=== PATIENT | male | born 1945 | race Caucasian/White ===

== ENCOUNTER 2018-07-27 06:26 | Day surgery (SDC) | payer OTHER ==
--- NOTE | 2018-07-25 15:20 | RAD REPORT ---
EXAM DESCRIPTION: Doroteo Masters (2 Views)07/25/2018 3:10 pm CLINICAL HISTORY: Abdominal pain/preop for hernia repair COMPARISON: 2016 FINDINGS: The lungs appear clear of acute infiltrate. The heart is normal size IMPRESSION: No acute abnormalities displayed
--- NOTE | 2018-07-25 15:37 | EKG ---
Test Date: 2018-07-25 Test Time: 15:01:38 Global Category Manager: EDWINA MEASUREMENT RESULTS: Intervals: Rate: 51 CO: 226 QRSD: 194 QT: 536 QTc: 494 [place]: P: 74 CO: 226 QRS: -25 T: 74 INTERPRETIVE STATEMENTS: Sinus bradycardia with 1st degree AV block Left bundle branch block Abnormal ECG No previous ECG available for comparison Electronically Signed On 07-25-18 15:37:04 CDT by Dale Contreras
[2018-07-25 16:08] LABS: Absolute Lymphocytes (CBC) 2.3 K/uL (0.7-4.9); Absolute Monocytes 0.6 K/uL (0.1-1.3); Absolute Neutrophil 4.1 K/uL (1.8-8.0); Basophils % 0.6 % (0-1.3); Eosinophils % 1.8 % (0-4.4); Hematocrit 45.2 % (39.6-49.0); MCV 90.2 fL (80-100); MPV 8.9 fL (7.6-11.3); Monocytes % 7.9 % (3.3-12.3); RBC Red Blood Cell Count 5.01 M/uL (4.33-5.43)
[2018-07-25 16:33] LABS: Potassium 3.8 mmol/L (3.5-5.1)
[2018-07-27] MEDS: Ringers Lactate 1,000 ML IV ONE ×2 (07:00→07:50)
[2018-07-27] MEDS ORDERED: PROPOFOL 200 MG/20 ML VIAL IV ONE (07:27)
[2018-07-27] MEDS ORDERED: MIDAZOLAM HCL 2 MG/2 ML INJ ONE (07:28)
[2018-07-27] MEDS ORDERED: FENTANYL CITR 100 MCG/2 ML ONE (07:28)
[2018-07-27] MEDS ORDERED: LIDOCAINE 2% MPF 5 ML VIAL ONE (07:29)
[2018-07-27] MEDS ORDERED: ONDANSETRON HCL 40 MG/20 ML VIAL ONE (07:29)
[2018-07-27] MEDS ORDERED: ROCURONIUM 50 MG/5 ML VIAL IV ONE (07:30)
[2018-07-27] MEDS ORDERED: CEFOXITIN/SWI 1gm 1 GM/10 ML SYR IV ONE (08:15)
[2018-07-27] MEDS ORDERED: CEFAZOLIN SODIUM 1 GM/VIAL ONE (08:16)
[2018-07-27] MEDS ORDERED: EPHEDRINE SULF 50 MG/10 ML SYR ONE (08:22)
[2018-07-27] MEDS ORDERED: GLYCOPYRROLATE 0.2 MG/ML SYR ONE (08:45)
--- NOTE | 2018-07-27 09:06 | P.BOP ---
Preoperative diagnosis: multiple incarcerated incisional ventral hernias Postoperative diagnosis: same Primary procedure: 1. Open repair of upper ventral incisional incarcerated hernia. Secondary procedure: 2. Open repair of midlower ventral incisional incarcerated hernia. Estimated blood loss: <10cc Specimen: hernia sac Findings: incarcerated omentum Anesthesia: General Complications: None Transferred to: Recovery Room Condition: Good
[2018-07-27] MEDS ORDERED: HYDROCODONE/APAP 5/325 MG TAB ONE (09:54)
--- NOTE | 2018-07-27 22:35 | OP ---
Date of Procedure: 07/27/2018 Surgeon: Jacob Medina MD Postoperative Diagnosis: Multiple incarcerated incisional ventral hernias. Postoperative Diagnosis: Multiple incarcerated incisional ventral hernias. Procedures: 1.Open repair of upper ventral incisional incarcerated hernia. 2.Open repair of mid lower ventral incisional incarcerated hernia. Findings: Incarcerated omentum in two of the hernias. Anesthesia: General plus local. Indications: This is the case of a 72-year-old patient who had an emergent laparotomy in the past. A midline incision from xiphoid all the way down to the lower abdomen several years ago. The patient is doing well, but noticed 2 areas broken in the abdomen and midline incision and diagnosed with her nias with incarceration, becoming tender and enlarging, and he wants that repaired. The benefits, al ternatives, and risks of repair of 2 ventral incisional incarcerated hernias were fully explained to the patient, which include, but are not limited to infection, bleeding, damage to adjacent structures , anesthesia complications, recurrence, GA, and even . He also understands this may not relieve any symptoms. He might need more than one surgical intervention. He understands the importance als o of losing weight and avoiding heavy straining and heavy lifting. He understands the pros and cons of mesh placement. He understands we might have to do some lysis of adhesions. He signed a consent. Description Of Procedure: The patient was brought to the operating room, placed in supine position. Anesthesia was done without complication. Previously, we checked the CAT scan on him and marked the location of the hernias also with the help of the patient. The abdomen was prepped and draped in st erile fashion. A time-out was called. We made an incision first on the bigger hernia in the ventral region. This was in the lower part. Incision was carried down to subcutaneous tissue. We went thr ough some scar tissue present, but we were able to identify the hernia sac. Javi was placed in the edge of the fascia. We opened the hernia sac, noticed incarcerated omentum with some adhesions pres ent to that area. We had to remove the adhesions of omentum to the hernia sac, reduced the omentum o nce. We noticed it to be viable and making sure there was no bleeding. The hernia sac was removed. In order for us to obtain good closure, we had to lyse some adhesions at omentum the patient has int o the anterior abdominal wall from previous surgeries. The area was irrigated. Hemostasis was obtai alfie. No bleeding. No enterotomies. That allowed me to put my finger on it and run the incision. W e noticed the second hernia in the upper ventral region. That is also what indicated the CAT scan. At that moment, we had to make an incision away from this and in the upper ventral region since it wa s too far away and made an incision in that area. Incision was carried down to fascia. The hernia s ac was identified and open. Incarcerated omentum was released from the hernia sac, reduced back into the cavity after fully inspecting and noted to be viable. Removed the hernia sac and closed the def ects with #2 nylon fisyvg-pw-gefye multiple times. After that, I ran my finger from the lower hernia and opened down. I could not find any other defect. So, I proceeded to close the main defect on e lower ventral region. That was done without tension with a by using #2-0 Prolene in a gwmake-de-ys ght fashion multiple times, and the defect was closed. Both subcutaneous incisions were closed with 3-0 chromic after irrigation and local anesthetic was applied after hemostasis, and then the skin was approximated with [place]. Sponge counts and instrument counts were correct. The patient tolerated the procedure well. The patient was sent to recovery room in stable condition. FRANCIA Voice ID: [id number] Report ID: [id number]
--- NOTE | 2018-07-27 22:59 | DS ---
Date of Discharge: 07/27/2018 Diagnosis: Two incisional incarcerated ventral hernias. Procedure: Repair of 2 incisional ventral hernias with different multiple incisions. Disposition: Home. Activity: As tolerated. No heavy lifting. Followup: Follow up in my office in 1 week. Call for appointment on [phone]. Keep the area dry fo r 48 hours and then may shower. Medications: For medications, see orders. JOE/ANN Voice ID: [id number] Report ID: [id number]
== END 2018-07-27 10:40 | disposition home or self-care (01) ==
LOC: OR 06:26
PROVIDERS: ATTEND Surgery
PROC: 0WQF0ZZ Repair Abdominal Wall, Open Approach (ICD-10-PCS; 2018-07-27)
PROC: 0WQF0ZZ Repair Abdominal Wall, Open Approach (ICD-10-PCS; principal; 2018-07-27 07:30)
DX: K43.0 Incisional hernia with obstruction, without gangrene (principal); I10 Essential (primary) hypertension; E78.00 Pure hypercholesterolemia, unspecified; K21.9 Gastro-esophageal reflux disease without esophagitis; E07.9 Disorder of thyroid, unspecified; Z80.0 Family history of malignant neoplasm of digestive organs; Z82.49 Family history of ischemic heart disease and other diseases of the circulatory system; Z80.42 Family history of malignant neoplasm of prostate
CPT/HCPCS: 36415; 49561 ×2; 71046; 80048; 85025; 88302; 93005; J0690; J2250; J2405; J3010

== ENCOUNTER 2018-12-19 07:54 | Day surgery (SDC) | payer OTHER ==
[~2018-12-19 07:54] MED LIST: LIDOCAINE 1.5% W/EPI AMP 5 ML ONE
[2018-12-19] MEDS ORDERED: TETRACAINE HCL 0.5% 2ML OPTH ONE (08:38)
[2018-12-19] MEDS ORDERED: BUPIVACAINE 0.25% PF 10 ML VIAL ONE (08:38)
[2018-12-19] MEDS ORDERED: LIDOCAINE 2% MPF 5 ML VIAL ONE (08:38)
[2018-12-19] MEDS ORDERED: NA CHLORIDE 0.9% 500 ML ONE (08:38)
[2018-12-19] MEDS ORDERED: LIDOCAINE HCL/PF 3.5% OPTH GEL ONE (08:38)
[2018-12-19] MEDS: CYCLOPENTOLATE 1% OPTH 2 ML ONE ×3 (08:50→09:12)
[2018-12-19] MEDS: PHENYLEPHRINE 10% OPTH 5ML ONE ×2 (08:50→09:12)
[2018-12-19] MEDS ORDERED: EPINEPHRINE/PF 1 MG/ML AMP ONE (09:24)
[2018-12-19] MEDS ORDERED: BALANCED SALT IRRIG PLAIN 500 ML BTL IRR ONE (09:24)
[2018-12-19] MEDS ORDERED: NS 0.9% VIAL 10 ML ONE (09:24)
[2018-12-19] MEDS ORDERED: DUOVISC 1 KIT OPTH ONE (09:24)
[2018-12-19] MEDS ORDERED: LIDOCAINE 1% MPF 2 ML AMPULE ONE (09:25)
[2018-12-19] MEDS ORDERED: MOXIFLOXACIN HCL 10 DROPS/ML **OR USE OPTH ONE (09:25)
[2018-12-19] MEDS ORDERED: MIDAZOLAM HCL 2 MG/2 ML INJ ONE (09:38)
[2018-12-19] MEDS ORDERED: FENTANYL CITR 100 MCG/2 ML ONE (09:38)
--- NOTE | 2018-12-19 10:44 | P.BOP ---
Preoperative diagnosis: Nuclear sclerotic cataract OS Postoperative diagnosis: Same Primary procedure: Phacoemulsification with IOL OS Estimated blood loss: None Anesthesia: Local Complications: None Implants: SA60WF +19.5 Transferred to: Other (Day surgery) Condition: Good
--- NOTE | 2018-12-19 20:48 | OP ---
Date of Procedure: 12/19/2018 Surgeon: Joanie Brothers MD Anesthesiologist: Deb Tariq CRNA, and Felipe Hall M.D. Preoperative Diagnosis: Nuclear sclerotic cataract, OS (left eye). Operation Performed: Phacoemulsification with intraocular lens implant, left eye. Anesthesia: Per cataract surgery. Complications: None. Description Of Procedure: In the operating room the patient was prepped and draped in the usual sterile fashion for ophthalmic surgery. A lid speculum was placed in the left eye. Two paracentesis sites were made superiorly and inferiorly in the limbal cornea. Viscoat was placed in the anterior chamber and a crescent blade was used to make a corneal groove and tunnel, and a keratome was used to enter the anterior chamber. Provisc was placed in the anterior chamber and a 360 degree capsulotomy was performed with a cystitome. The lens was hydrodissected with BSS and rotated freely. The lens was removed with a stop and chop technique. A 10.04 phaco CDE was used to remove the lens. Residual cortex was removed with the irrigation and aspiration. Provisc was placed in the capsular bag. A SA60WF +19.5 lens was placed in the capsular bag without complications. Irrigation and aspiration was used to remove residual viscoelastic. The paracentesis sites were hydrated with BSS. The wound and paracentesis sites were inspected and found to be watertight. Vigamox 0.07 cc was placed intracamerally at the end of the procedure. The eye was irrigated with balanced salt solution. The eye was patched with a soft cotton patch and Gomes metal shield. The patient was returned to day surgery in good condition. Comments: Akten was placed in the eye in Day Surgery and irrigated out of the eye with BSS in the OR. Preservative-free 1% lidocaine was placed in the anterior chamber prior to Viscoat. Discharge Instructions: Mr. Hernandez is discharged to home in good condition and is to follow up with Dr. Brothers in the morning. JUAN/ANN Voice ID: [id number] Report ID: [id number] LISBETH
== END 2018-12-19 11:10 | disposition home or self-care (01) ==
LOC: OR 07:54
PROVIDERS: ATTEND Ophthalmology Retina Specialist
PROC: 08RK3JZ Replacement of Left Lens with Synthetic Substitute, Percutaneous Approach (ICD-10-PCS; principal; 2018-12-19 09:40)
DX: H25.12 Age-related nuclear cataract, left eye (principal); E78.00 Pure hypercholesterolemia, unspecified; I10 Essential (primary) hypertension; E07.9 Disorder of thyroid, unspecified; Z79.899 Other long term (current) drug therapy
CPT/HCPCS: 66984; J0171; J2001 ×2; J2250; J3010; V2630

== ENCOUNTER 2019-01-30 07:27 | Day surgery (SDC) | payer OTHER ==
[2019-01-30] MEDS ORDERED: NS 0.9% VIAL 10 ML ONE (08:13)
[2019-01-30] MEDS ORDERED: BSS OPTHALMIC SOL 15 ML BOT OPTH ONE (08:14)
[2019-01-30] MEDS ORDERED: LIDOCAINE 2% MPF 5 ML VIAL ONE (08:25)
[2019-01-30] MEDS ORDERED: LIDOCAINE HCL/PF 3.5% OPTH GEL ONE (08:25)
[2019-01-30] MEDS ORDERED: CYCLOPENTOLATE 1% OPTH 2 ML OPTH ONE ×2 (08:25→08:30)
[2019-01-30] MEDS ORDERED: PHENYLEPHRINE 10% OPTH 5ML ONE (08:25)
[2019-01-30] MEDS ORDERED: NA CHLORIDE 0.9% 500 ML ONE (08:25)
[2019-01-30] MEDS ORDERED: PHENYLEPHRINE 10% OPTH 5ML OPTH ONE ×2 (08:25→08:30)
[2019-01-30] MEDS ORDERED: CYCLOPENTOLATE 1% OPTH 2 ML ONE (08:26)
[2019-01-30] MEDS ORDERED: BUPIVACAINE 0.25% PF 10 ML VIAL ONE (08:26)
[2019-01-30] MEDS ORDERED: TETRACAINE HCL 0.5% 2ML OPTH ONE (08:26)
[2019-01-30] MEDS ORDERED: LIDOCAINE 2% INJ, MPF 2 ML 0 ML ONE (08:28)
[2019-01-30] MEDS ORDERED: LIDOCAINE 1% MPF 2 ML AMPULE ONE (08:31)
[2019-01-30] MEDS ORDERED: MIDAZOLAM HCL 2 MG/2 ML INJ ONE (08:51)
[2019-01-30] MEDS ORDERED: FENTANYL CITR 100 MCG/2 ML ONE (08:51)
[2019-01-30] MEDS: BALANCED SALT IRRIG PLAIN 500 ML BTL IRR ONE ×2 (08:56→09:19)
[2019-01-30] MEDS: DUOVISC 1 KIT OPTH ONE ×2 (08:57→09:19)
[2019-01-30] MEDS: EPINEPHRINE/PF 1 MG/ML AMP ONE ×2 (08:57→09:19)
[2019-01-30] MEDS: MOXIFLOXACIN HCL 10 DROPS/ML **OR USE OPTH ONE ×2 (08:57→09:19)
--- NOTE | 2019-01-30 09:56 | P.BOP ---
Preoperative diagnosis: Nuclear sclerotic cataract OD Postoperative diagnosis: Same Primary procedure: Phacoemulsification with IOL OD Estimated blood loss: None Anesthesia: Local (Subtenon's infusion with anesthesia for cataract surgery) Complications: None Implants: SA60WF +19.0 Transferred to: Other (Day surgery) Condition: Good
--- NOTE | 2019-01-30 21:04 | OP ---
Date of Procedure: 01/30/2019 Surgeon: Joanei Brothers MD Preoperative Diagnosis: Nuclear sclerotic cataract, OD (right eye). Operation Performed: Phacoemulsification with intraocular lens implant, right eye. Anesthesia: 1. Bereket Vera CRNA. 2. Felipe Hall MD. Anesthesia per cataract surgery. Complications: None. Description Of Procedure: In the operating room the patient was prepped and draped in the usual sterile fashion for ophthalmic surgery. A lid speculum was placed in the right eye. Two paracentesis sites were made superiorly and inferiorly in the limbal cornea. Viscoat was placed in the anterior chamber and a crescent blade was used to make a corneal groove and tunnel, and a keratome was used to enter the anterior chamber. Provisc was placed in the anterior chamber and a 360 degree capsulotomy was performed with a cystitome. The lens was hydrodissected with BSS and rotated freely. The lens was removed with a stop and chop technique. An 11.76 phaco CDE was used to remove the lens. Residual cortex was removed with the irrigation and aspiration. Provisc was placed in the capsular bag. An SA60WF +19.0 lens was placed in the capsular bag without complications. Irrigation and aspiration was used to remove residual viscoelastic. The paracentesis sites were hydrated with BSS. The wound and paracentesis sites were inspected and found to be watertight. Vigamox 0.07 cc was placed intracamerally at the end of the procedure. The eye was irrigated with balanced salt solution. The eye was patched with a soft cotton patch and Gomes metal shield. The patient was returned to day surgery in good condition. Comments: Akten was placed in the eye in Day surgery and irrigated out of the eye with BSS in the OR. Preservative-free 1% lidocaine was placed in the anterior chamber prior to Viscoat. Discharge Instructions: Mr. Hernandez is discharged to home in good condition and is to follow with Dr. Brothers in the morning. JUAN/ANN Voice ID: [id number] Report ID: [id number] LISBETH
== END 2019-01-30 10:15 | disposition home or self-care (01) ==
LOC: OR 07:27
PROVIDERS: ATTEND Ophthalmology Retina Specialist
PROC: 08RJ3JZ Replacement of Right Lens with Synthetic Substitute, Percutaneous Approach (ICD-10-PCS; principal; 2019-01-30 09:00)
DX: H25.11 Age-related nuclear cataract, right eye (principal); E78.00 Pure hypercholesterolemia, unspecified; E07.9 Disorder of thyroid, unspecified; I10 Essential (primary) hypertension; Z79.899 Other long term (current) drug therapy
CPT/HCPCS: 66984; J0171; J2250; J3010; J2001; J3490

== ENCOUNTER 2021-03-24 08:24 | Day surgery (SDC) | payer OTHER ==
[2021-03-20 14:17] LABS: Absolute Lymphocytes (CBC) 2.4 K/uL (0.7-4.9); Basophils % 0.5 % (0-1.3); Hematocrit 47.2 % (39.6-49.0); Lymphocytes % 34.6 % (15.3-44.8); MPV 8.8 fL (7.6-11.3); RBC Red Blood Cell Count 5.33 M/uL (4.33-5.43)
[2021-03-20 14:23] LABS: Protime INR 1.27
[2021-03-20 14:28] LABS: Potassium 3.7 mmol/L (3.5-5.1)
--- NOTE | 2021-03-20 15:03 | RAD REPORT ---
EXAM DESCRIPTION: RAD - Chest Pa And Lat (2 Views) - 03/20/2021 2:17 pm CLINICAL HISTORY: preop, pending cardiac catheterization COMPARISON: July 2018 TECHNIQUE: Frontal and lateral views of the chest were obtained. FINDINGS: The lungs are clear of an acute lung parenchymal process. Mildly prominent chronic interst itial lung pattern matches the comparison study. Heart size is normal and central vasculature is wi thin normal limits. No pleural effusion or pneumothorax seen. No acute bony finding noted. No aort ic abnormality. Colonic interposition between the liver and right hemidiaphragm noted has a normal v ariant. IMPRESSION: No acute cardiopulmonary process. No significant change from comparison study.
[2021-03-24] MEDS ORDERED: NA CHLORIDE 0.9% 500 ML ONE (08:47)
[2021-03-24] MEDS ORDERED: HEPA 1000U/500MLS 1,000 UNIT/500 ML BAG IV ONE (08:57)
[2021-03-24 09:06] VITALS: TEMP 96.1
[2021-03-24] MEDS ORDERED: ATROPINE SULF 1 MG/10 ML SYR IV ONE (09:27)
[2021-03-24] MEDS ORDERED: MIDAZOLAM HCL 2 MG/2 ML INJ ONE (09:27)
[2021-03-24] MEDS ORDERED: NITROGLYCERIN 100 MCG/ML SYR (for cath lab use only) IV ONE (09:27)
[2021-03-24] MEDS ORDERED: FENTANYL CITR 100 MCG/2 ML ONE (09:27)
[2021-03-24] MEDS ORDERED: NA CHLORIDE 0.9% 0 ML ONE (09:27)
[2021-03-24] MEDS ORDERED: NITROGLYCERIN/D5W 0 MG/0 ML BTL IV ONE (09:27)
[2021-03-24 11:29] VITALS: BP 128/67; O2SAT 100
--- NOTE | 2021-03-24 11:41 | OP ---
Surgeon: Julio Garza MD Vp Talent Management: Brandyn Peralta. Procedure In Detail: Brought to the construction or leak gang laborer today on 03/24/2021. He was brought to the construction or leak gang laborer as an outpatient. Indication For The Procedure: Chest pain, shortness of breath, asymmetrical septal hypertrophy, low ejection fraction, and abnormal stress test. Procedure In Detail: Mr. Hernandez is 75, brought to the construction or leak gang laborer today as an outpatient, prepped and dr aped in routine sterile fashion. Given Versed and fentanyl for sedation. A 6-[place] Citizen sheath was intr oduced in the right common femoral artery successfully. Angiography there was normal. Angio-Seal wa s used to close the case. Rosana catheters left and right were used to cannulate the left main and right main respectively. RCA was very large, ectatic, dominant with diffuse plaquing throughout and a 50% distal RCA stenosis. His left main was normal. His circumflex was positive for some mild plaq uing throughout. The LAD showed a 30% proximal stenosis, a 50% distal stenosis. Again, it was ectat ic with diffuse plaquing. No focal stenosis, bad enough for intervention. The patient tolerated the procedure well. There were no complications. Blood Loss: 5 mL. Postoperative Diagnosis: Moderate coronary artery disease. Plan: To continue medical therapy. I will increase his statin for now. May have to increase his be ta-tracie later depending on his symptoms. Anesthesia: Total conscious sedation 45 minutes. The patient will go home after 2 hours of bedrest. I will see him in the office in 2 weeks. DARIO/ANN Voice ID: [id number] Report ID: [id number]
== END 2021-03-24 11:30 | disposition home or self-care (01) ==
LOC: CCL 08:24
DX: I25.10 Atherosclerotic heart disease of native coronary artery without angina pectoris (principal); I71.4 Abdominal aortic aneurysm, without rupture; I71.2 Thoracic aortic aneurysm, without rupture; I10 Essential (primary) hypertension; E78.2 Mixed hyperlipidemia; G47.33 Obstructive sleep apnea (adult) (pediatric); K21.9 Gastro-esophageal reflux disease without esophagitis; E11.9 Type 2 diabetes mellitus without complications; E03.9 Hypothyroidism, unspecified
CPT/HCPCS: 85025; 80048; 36415; 85610; 85730; 71046; 93454; U0003; C1893; C1760; J2250; J3010; J7040; J1644; J0583

== ENCOUNTER 2023-12-14 09:21 | Day surgery (SDC) | payer OTHER ==
[2023-12-14] MEDS: Ringers Lactate 1,000 ML IV ONE (09:50)
[2023-12-14] MEDS ORDERED: KETOROLAC 30 MG/ML INJ ONE (12:36)
[2023-12-14] MEDS ORDERED: FENTANYL CITR 100 MCG/2 ML ONE (12:36)
[2023-12-14] MEDS ORDERED: ONDANSETRON 4 MG/2 ML VIAL ONE (12:36)
[2023-12-14] MEDS ORDERED: propofoL 200 MG/20 ML VIAL IV ONE (12:36)
[2023-12-14] MEDS ORDERED: LIDOCAINE 1% MPF 5 ML VIAL ONE (12:36)
[2023-12-14] MEDS: GENTAMICIN 80 MG/100 ML BAG 240 MG/300 ML BAG IV ONE (12:55)
[2023-12-14] MEDS: AMPICILLIN SODIUM 2 GM/VIAL VIAL ONE (13:10)
[2023-12-14] MEDS ORDERED: GLYCOPYRROLATE 0.2 MG/ML SYR ONE (13:40)
[2023-12-14] MEDS ORDERED: EPHEDRINE SULF 50 MG/ML VIAL ONE (13:56)
[2023-12-14] MEDS ORDERED: CODEINE 30MG/APAP 300MG TAB PO PRN (14:37)
[2023-12-14] MEDS ORDERED: PHENAZOPYRIDINE 100MG TAB PO ONE (15:31)
[2023-12-14] MEDS: PHENAZOPYRIDINE 100MG TAB PO ONE (15:33)
[2023-12-14] MEDS: OXYBUTYNIN ER 5 MG TAB PO ONE (15:37)
[2023-12-14 16:42] VITALS: BP 112/68
[2023-12-14 17:03] VITALS: TEMP 97; O2SAT 95
--- NOTE | 2023-12-14 19:12 | OP ---
Surgeon: CAMMY CARRILLO Preoperative Diagnosis: Benign prostatic hypertrophy with lower urinary tract obstruction and sympto ms. Postoperative Diagnosis: Benign prostatic hypertrophy with lower urinary tract obstruction and sympt oms. Principal Procedure: Bipolar transurethral resection of the prostate. Indication For Procedure: Mr. Hernandez presented to the Urology Clinic with persistent urinary symptoms refractory to medical therapy. Cystoscopic analysis revealed intravesical projection of median lobe and anterior fusion which made the potential for more minimally invasive procedures like the UroLift less of an option. As a result, he was counseled on the opportunity for bipolar transurethral resec tion of the prostate in order to improve his LUTS, and he elected to proceed. Description Of Procedure: The patient was consented in the preoperative holding area before being tr ansferred to the operative suite where general anesthesia was induced. He was given ampicillin 2 g a nd gentamicin 240 mg IV antimicrobial prophylaxis. Pneumo boots were provided for DVT prophylaxis. He was placed in the lithotomy position, padded and secured to the table appropriately. His genitali a were prepped with Hibiclens and he was draped in standard fashion. The case was begun using urethr al sounds to dilate the meatus and fossa navicularis to 30-Turkish. Then, utilizing a visual obturato r and a 26-Turkish resectoscope bipolar sheath, I was able to traverse the urethra and into the bladde r with ease. The bladder was decompressed of fluid and urine and was surveyed. It was then refilled with sterile saline, and the ureteral orifices were identified. I then began resecting the intralum inally projecting adenoma of the median lobe with the left ureteral orifice in direct vision, smoothi ng the elevated bladder neck down to the level of the trigone. I similarly resected the region with the right ureteral orifice in direct vision and lowering the bladder neck to the level of trigone bef ore I resected the intervening intravesically projecting median lobar tissue. Once this was level wi th the bladder neck, I continued the resection down to the level of the verumontanum to create a smoo th trough. I then continued the resection into the left lateral lobe first at the bladder neck and e xtending into the mid zone of the prostate before getting to the apex and extending that from bladder neck to apex posteriorly to anteriorly. I then similarly resected the patient's right side starting at the bladder neck extending into the mid zone of the prostate and then to the apex from posterior to anterior. Ellik evacuation was used at multiple points to remove prostate chips and blood within the bladder, and with his bladder completely decompressed, I would reassess the now intraluminally pr ojecting adenoma evidenced from the decompression of his bladder, and I would resect that tissue furt her until no intraluminally projecting adenoma was present. I also trimmed the apical intraluminal i ntrusion until it was also no longer kissing in the midline, but yet not beyond the point of the veru montanum. In the end, with the bladder completely decompressed and the adenoma nicely resected, a sm ooth continuous channel was visible from verumontanum into the bladder. I thus ensured all prostate chips had been removed, and carefully fulgurated any and all bleeding vessels with minimal fluid irri gation going in. I then completely decompressed his bladder again and with the bladder completely em pty, further fulgurated any oozing vessels with no fluid irrigation going. In the end, once complete ly hemostatic with the bladder completely decompressed, I then refilled the bladder to ensure all pro state chips had been removed and removed any residual tissue seen within. I then retrograde filled h is bladder before removing the scope and assessing for any prostate chips in the urethra on the way o ut. I then passed a 22-Turkish 3-way Zarate catheter via his urethra into his bladder with ease. 40 c c of sterile water was placed in the balloon. The patient was then taken out of the lithotomy positi on, the catheter was connected to moderate traction and very slow drip CBI, and the efflux of fluid a nd urine was crystal clear. He was then transferred to a stretcher and then transferred to the [facility] room in good condition. Complications: None. Discharge Disposition: He will be standard bipolar TURP followup pathway. He may be seen for a nurs ing visit somewhere 2-4 weeks following the procedure in case there is any symptomatic difficulty he might be experiencing that could benefit from our support and assistance. Otherwise, I will see him back in about 3 months. ANUJ/MODL Voice ID: [id number] Report ID: [id number]
[2023-12-15] MEDS ORDERED: OXYBUTYNIN ER 5 MG TAB PO SCH (09:00)
== END 2023-12-14 16:30 | disposition home or self-care (01) ==
LOC: OR 09:21
PROVIDERS: ATTEND Urology
PROC: 0VT08ZZ Resection of Prostate, Via Natural or Artificial Opening Endoscopic (ICD-10-PCS; principal; 2023-12-14 11:00)
DX: N40.1 Benign prostatic hyperplasia with lower urinary tract symptoms (principal)
CPT/HCPCS: 88304; 52601; J2704; J2001; J3010; J2405; J0290; J7120; J1580

== ENCOUNTER 2024-08-31 06:39 | Day surgery (SDC) | payer OTHER ==
[2024-08-30 13:38] LABS: Absolute Eosinophils 0.1 K/uL (0-0.5); Absolute Lymphocytes (CBC) 2.2 K/uL (0.7-4.9); Absolute Monocytes 0.6 K/uL (0.1-1.3); Absolute Neutrophil 3.4 K/uL (1.8-8.0); Basophils % 0.6 % (0-1.3); Eosinophils % 1.7 % (0-4.4); Hematocrit 46.6 % (39.6-49.0); Hemoglobin 15.4 g/dL (13.6-17.9); Lymphocytes % 34.8 % (15.3-44.8); MCH 30.3 pg (27.0-35.0); MCHC 33.1 g/dL (32.0-36.0); MCV 91.5 fL (80-100); MPV 8.3 fL (7.6-11.3); Monocytes % 9.3 % (3.3-12.3); Neutrophils % 53.6 % (41.7-73.7); Platelets 169 thou/uL (152-406); Red Cell Distribution Width 13.6 % (12.1-15.2)
[2024-08-30 13:47] LABS: PT Prothrombin Time 13.6 SECONDS (9.4-12.5); PTT, Activated Partial Thromb 35.8 SECONDS (24.3-36.9); Protime INR 1.22
--- NOTE | 2024-08-30 14:02 | RAD REPORT ---
EXAMINATION: TWO VIEW CHEST XR CLINICAL INDICATION: Pre-op pending heart catheterization TECHNIQUE: 2 views of the chest was performed. COMPARISON: 07/21/2023, 03/20/2021 FINDINGS: The lungs are mildly hyperexpanded but grossly clear. The heart is mildly to moderately enlarged. No displaced fractures evident. IMPRESSION: No acute or significant abnormalities.
[2024-08-31] MEDS ORDERED: NA CHLORIDE 0.9% 500 ML ONE (06:40)
[2024-08-31 06:53] VITALS: TEMP 97.9
[2024-08-31] MEDS ORDERED: HEPA 1000U/500MLS 2,000 UNIT/1,000 ML BAG IV ONE (06:59)
[2024-08-31] MEDS ORDERED: HEPARIN 10,000 UNIT/10 ML VIAL IV ONE (06:59)
[2024-08-31] MEDS ORDERED: VERAPAMIL HCL 10 MG/4 ML VIAL IV ONE (07:00)
[2024-08-31] MEDS ORDERED: MIDAZOLAM HCL 2 MG/2 ML INJ ONE (07:00)
[2024-08-31] MEDS ORDERED: LIDOCAINE 1% 20 ML MDV ONE (07:00)
[2024-08-31] MEDS ORDERED: TICAGRELOR 90 MG TABLET PO ONE (07:01)
[2024-08-31] MEDS ORDERED: ASPIRIN 325 MG TAB ONE (07:01)
[2024-08-31] MEDS ORDERED: HEPARIN 5000 UNIT/ML 1 ML VIAL ONE (07:01)
[2024-08-31] MEDS ORDERED: FENTANYL CITR 100 MCG/2 ML ONE (07:01)
[2024-08-31] MEDS ORDERED: CLOPIDOGREL 75 MG TABLET ONE (07:01)
[2024-08-31] MEDS ORDERED: ATROPINE SULF 1 MG/10 ML SYR IV ONE (07:02)
[2024-08-31 10:33] VITALS: BP 137/87; O2SAT 94
--- NOTE | 2024-08-31 11:10 | EKG ---
Test Date: 2024-08-30 Test Time: 13:21:58 Insurance Sales Supervisor: MARY MEASUREMENT RESULTS: Intervals: Rate: 63 UT: 250 QRSD: 194 QT: 490 QTc: 501 [place]: P: 2 UT: 250 QRS: -56 T: 115 INTERPRETIVE STATEMENTS: Sinus rhythm with 1st degree AV block Left axis deviation Left bundle branch block Abnormal ECG Compared to ECG 07/29/2023 13:34:56 No significant changes Electronically Signed On 08-31-24 11:07:47 CDT by Ankush Turner
--- NOTE | 2024-08-31 18:34 | OP ---
Date of Procedure: 08/31/2024 Surgeon: HALIMA GARCIA Procedures Performed: 1.Selective coronary angiogram. 2.Left heart catheterization. Indication: Unstable angina. Access: Right radial artery 6-Zimbabwean closed with TR band. Complications: None. Bleeding: Less than 50 mL. Anesthesia: Total sedation time was 45 minutes. Used fentanyl and Versed. Description Of Procedure: After risks, benefits, and alternatives were explained, patient agreed to procedure and signed informed consent. The patient was brought into cardiac catheterization laborato , prepped and draped in sterile fashion. 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 So I exchanged for 6-Zimbabwean JL4 catheter and was able to engage the left main, obtained th e standard views and then exchanged for 6-Zimbabwean 3DRC catheter, engaged the RCA, took standard views, and the catheter was pushed over the wire into the LV, measured the LVEDP. Pullback did not record any gradient. Then I removed the catheter and the sheath, placed TR band with good hemostasis. Findings: 1.Left main; very large and normal. 2.LAD; it is a large vessel, proximal 40% to 50%, mid 30%, mid to distal 30% to 40%. Diagonal branc hes with luminal irregularities. 3.Left circumflex; proximal 10% to 20% and then the OM branch is large, has mid 50%. The circ itsel f becomes very small with luminal irregularities. 4.RCA; very large and dominant and aneurysmal. There is a distal 60% stenosis that has not changed from before, but even with 60%, still the lumen is about 3-4 mm. It is very aneurysmal artery. 5.Normal LVEDP at 10 mmHg. Conclusion: 1.Moderate coronary artery disease. 2.Borderline LVEDP. Recommendation: Medical management. SR/MODL Voice ID: [id number] Report ID: [id number]
== END 2024-08-31 10:15 | disposition home or self-care (01) ==
LOC: CCL 06:39
PROVIDERS: ATTEND Internal Medicine
DX: I25.110 Atherosclerotic heart disease of native coronary artery with unstable angina pectoris (principal); I71.43 Infrarenal abdominal aortic aneurysm, without rupture; I71.21 Aneurysm of the ascending aorta, without rupture; I34.0 Nonrheumatic mitral (valve) insufficiency; I11.0 Hypertensive heart disease with heart failure; I50.9 Heart failure, unspecified; I44.7 Left bundle-branch block, unspecified; R01.1 Cardiac murmur, unspecified; E78.5 Hyperlipidemia, unspecified; K21.9 Gastro-esophageal reflux disease without esophagitis; E03.9 Hypothyroidism, unspecified; G47.30 Sleep apnea, unspecified; Z79.899 Other long term (current) drug therapy
CPT/HCPCS: 93005; 85025; 80048; 36415; 85610; 85730; 71046; 93458; 76937; C1893; Q9967; J1644; J2003; J2250; J3010; J7040; 99152; 99153; J0461